=== PATIENT | female | born 2000 | race Two or more races ===

== ENCOUNTER 2020-08-09 17:08 | Outpatient (CLI) | payer OTHER ==
[~2020-08-09 17:08] MED LIST: COLACE 100MG C100 MG PO; IBUPROFEN600 MG PO; KEFLEX500 MG PO; LORTAB 5-325 M1 EACH PO; PRENATAL VITAM1 EAC8 PO
== END 2020-08-09 19:28 | disposition home or self-care (01) ==
LOC: GENOP 17:08
PROVIDERS: Obstetrics & Gynecology
DX: O21.8 Other vomiting complicating pregnancy (principal); O26.892 Other specified pregnancy related conditions, second trimester; R10.9 Unspecified abdominal pain; Z3A.24 24 weeks gestation of pregnancy
CPT/HCPCS: 80307; 81001; 96360; J2405; J7120

== ENCOUNTER 2020-08-23 20:14 | Outpatient (CLI) | payer OTHER | END 2020-08-24 01:33 | disposition home or self-care (01) | LOC: GENOP 20:14 | DX: O99.891 Other specified diseases and conditions complicating pregnancy (principal); R10.9 Unspecified abdominal pain; R31.9 Hematuria, unspecified; M54.9 Dorsalgia, unspecified; Z87.440 Personal history of urinary (tract) infections; Z87.891 Personal history of nicotine dependence; Z88.1 Allergy status to other antibiotic agents; Z79.2 Long term (current) use of antibiotics; Z79.899 Other long term (current) drug therapy; Z3A.26 26 weeks gestation of pregnancy | CPT/HCPCS: 81001; 87077; 87086; 87186; 96365; 96367; J0696 ==

== ENCOUNTER 2020-10-19 15:21 | Outpatient (CLI) | payer OTHER ==
[~2020-10-19] VITALS: Ht 154.9 cm; Wt 70.8 kg
== END 2020-10-19 19:32 | disposition home or self-care (01) ==
LOC: GENOP 15:21
DX: O99.891 Other specified diseases and conditions complicating pregnancy (principal); M54.5 Low back pain; R10.2 Pelvic and perineal pain; O24.419 Gestational diabetes mellitus in pregnancy, unspecified control; Z79.84 Long term (current) use of oral hypoglycemic drugs; O23.43 Unspecified infection of urinary tract in pregnancy, third trimester; Z3A.34 34 weeks gestation of pregnancy
CPT/HCPCS: 81001; 82962; G0463

== ENCOUNTER 2020-10-25 10:08 | Observation (INO) | payer OTHER ==
[2020-10-25 13:16] LABS: HEMOGLOBIN 12.6 gm/dl (12.3-15.3); RED BLOOD COUNT 4.05 M/UL (4.00-5.10); WHITE BLOOD COUNT 10.4 K/UL (4.5-11.0)
[2020-10-25 13:39] LABS: BUN/CREATININE RATIO 11 (0-10)
== END 2020-10-26 11:45 | disposition home or self-care (01) ==
LOC: GENOP 10:08 → OB 13:23
PROVIDERS: Obstetrics & Gynecology; ADMIT Obstetrics & Gynecology
DX: O99.891 Other specified diseases and conditions complicating pregnancy (principal); R10.31 Right lower quadrant pain; M54.9 Dorsalgia, unspecified; R19.7 Diarrhea, unspecified; O24.415 Gestational diabetes mellitus in pregnancy, controlled by oral hypoglycemic drugs; O99.333 Smoking (tobacco) complicating pregnancy, third trimester; F17.210 Nicotine dependence, cigarettes, uncomplicated; Z87.440 Personal history of urinary (tract) infections; Z88.1 Allergy status to other antibiotic agents; Z79.84 Long term (current) use of oral hypoglycemic drugs; Z3A.35 35 weeks gestation of pregnancy; Z20.822 Contact with and (suspected) exposure to COVID-19
CPT/HCPCS: 36415; 59025; 80053; 80307; 81001; 82962; 83518; 85025; 87077; 87086; 87186; 96360; 96361; 96367; 96374; 96376; G0378; J0690; U0002

== ENCOUNTER 2020-11-05 17:02 | Outpatient (CLI) | payer OTHER ==
[2020-11-05 18:31] LABS: HEMOGLOBIN 13.3 gm/dl (12.3-15.3); RED BLOOD COUNT 4.31 M/UL (4.00-5.10); WHITE BLOOD COUNT 9.4 K/UL (4.5-11.0)
[2020-11-05 18:55] LABS: BUN/CREATININE RATIO 13 (0-10)
== END 2020-11-05 21:29 | disposition home or self-care (01) ==
LOC: GENOP 17:02
PROVIDERS: Obstetrics & Gynecology
DX: O24.415 Gestational diabetes mellitus in pregnancy, controlled by oral hypoglycemic drugs (principal); O34.219 Maternal care for unspecified type scar from previous cesarean delivery; O36.8130 Decreased fetal movements, third trimester, not applicable or unspecified; Z3A.36 36 weeks gestation of pregnancy; Z20.822 Contact with and (suspected) exposure to COVID-19
CPT/HCPCS: 36415; 80053; 81001; 82962; 85025; 96360; 96361; J7030; U0002

== ENCOUNTER 2020-11-11 04:46 | Inpatient (IN) | payer OTHER ==
[~2020-11-11] VITALS: Ht 154.9 cm; Wt 71.7 kg
[2020-11-11 05:38] LABS: HEMOGLOBIN 12.8 gm/dl (12.3-15.3); RED BLOOD COUNT 4.09 M/UL (4.00-5.10); WHITE BLOOD COUNT 8.4 K/UL (4.5-11.0)
[2020-11-11 06:05] LABS: BUN/CREATININE RATIO 11 (0-10)
[2020-11-11] MEDS ORDERED: PRENATE ELITE1 EAC1 PO (06:22)
[2020-11-11] MEDS ORDERED: GLUCOPHAGE XR500 M1 PO (06:22)
[2020-11-11] MEDS ORDERED: DOCUSATE SODIU100 MG PO (08:02)
[2020-11-11] MEDS ORDERED: FERROUS SULFAT325 M2 PO (08:02)
[2020-11-11] MEDS ORDERED: HYDROCODON-ACE1 EAC4 PO (08:02)
[2020-11-11] MEDS ORDERED: IBUPROFEN600 MG PO (08:02)
== END 2020-11-14 15:42 | disposition home or self-care (01) | DRG 788 ==
LOC: OB 04:46
PROVIDERS: Obstetrics & Gynecology; ADMIT Obstetrics & Gynecology
PROC: 4A1HXCZ Monitoring of Products of Conception, Cardiac Rate, External Approach (ICD-10-PCS; 2020-11-11)
PROC: 10D00Z1 Extraction of Products of Conception, Low, Open Approach (ICD-10-PCS; principal; 2020-11-11 09:01)
DX: O34.211 Maternal care for low transverse scar from previous cesarean delivery (principal); O99.334 Smoking (tobacco) complicating childbirth; Z3A.37 37 weeks gestation of pregnancy; Z37.0 Single live birth; O24.424 Gestational diabetes mellitus in childbirth, insulin controlled; Z20.822 Contact with and (suspected) exposure to COVID-19
CPT/HCPCS: 36415; 80053; 80307; 81001; 82800; 85014; 85018; 85025; C9113; J0690; J1170; J1885; J2274; J2405; J2590; J3010; J7030; J7120; U0002